=== PATIENT | male | born 1965 | race Caucasian/White ===

== ENCOUNTER → 2016-06-07 | Outpatient (CLI) | payer MEDICARE ==
[~2016-06-07] MED LIST: CITA20TA17 PO; FOLI-40 PO; GABA-338 PO; HYDR-1343 PO; LIPITOR; LISI10TA7 PO; PREG100C; TIZA6CAP7 PO; [UNRECOGNIZED DRUG - CODE] PO
--- NOTE | 2016-06-08 08:25 | DI ---
Indication: ITS.REASON: M47.817 LUMBOSACRAL SPONDYLOSIS PROCEDURE: MRI LUMBAR SPINE W/O CONTRAST: Encounter: Initial Comparison: None Technique: Multiplanar multisequence MR imaging of the lumbar spine was performed without contrast. Findings: Alignment of the lumbar spine is within normal limits. No acute fracture seen. Bone marrow signal intensity is normal. Conus medullaris terminates normally at L1. The paraspinal soft tissues are unremarkable. Segmental analysis: L1-L2: Normal L2-L3: Mild disk desiccation and height loss without significant protrusion, central canal or neural foraminal stenosis. L3-L4: Focal central protrusion with degenerative facet hypertrophy causes moderate to severe central canal narrowing. Mild bilateral neural foraminal stenosis. L4-L5: Right central and foraminal disk protrusion with degenerative facet disease causing mild central canal stenosis. Mild bilateral neural foraminal stenosis. L5-S1: Normal Impression: Degenerative disk and facet disease at L3-L4 and L4-L5. .
== END ==
LOC: IMA 17:28
PROVIDERS: ATTEND Psychiatry & Neurology Neurology
DX: M47.816 Spondylosis without myelopathy or radiculopathy, lumbar region (principal); M48.06 Spinal stenosis, lumbar region; M51.36 Other intervertebral disc degeneration, lumbar region; M47.817 Spondylosis without myelopathy or radiculopathy, lumbosacral region